=== PATIENT | male | born 1955 | race Caucasian/White ===

== ENCOUNTER 2018-08-18 11:27 | Outpatient (CLI) | payer BC, SELFPAY ==
[2018-08-18 13:24] LABS: ALT 41 U/L (12-78); AST 23 U/L (15-37); Alkaline Phosphatase 103 U/L (46-116); Anion Gap 9.4 mmol/L (3-11); BUN 15 mg/dL (7-18); Bilirubin, Total 0.9 mg/dL (0.2-1.0); CO2 28.6 mmol/L (21.0-32.0); CREATININE 0.99 mg/dL (0.70-1.30); Calcium 9.4 mg/dL (8.5-10.1); Chloride 102 mmol/L (98-107); Glucose 95 mg/dL (70-100); Potassium 4.4 mmol/L (3.5-5.1); Sodium 140 mmol/L (136-145); Total Protein 7.2 g/dL (6.4-8.2)
[2018-08-18 14:15] LABS: Hemoglobin A1C 5.4 % (4.5-6.2)
[2018-08-19 10:58] LABS: PSA, Screening 1.9 ng/ml (0-4.5)
== END 2018-08-18 11:47 ==
PROVIDERS: PCP Family Medicine; Visit Provider Family Medicine
DX: Z00.00 Encounter for general adult medical examination without abnormal findings (principal); R73.9 Hyperglycemia, unspecified; N13.8 Other obstructive and reflux uropathy; N40.1 Benign prostatic hyperplasia with lower urinary tract symptoms; Z12.5 Encounter for screening for malignant neoplasm of prostate
CPT/HCPCS: 36415; 80053; 84153; 83036

== ENCOUNTER 2019-08-23 07:00 | Outpatient (CLI) | payer MEDICARE, BC, SELFPAY ==
[2019-08-23 12:39] LABS: HCT 42.4 % (40.0-50.0); HGB 15.3 g/dL (13.5-17.5); Mean Corp. HGB Concentration 36.1 g/dL (32.0-36.0); Mean Corpuscular Hemoglobin 32.1 pg (27.0-33.0); Mean Corpuscular Volume 88.9 fL (80-95); Mean Platelet Volume 10.9 fL (8.0-11.0); Platelet Count 296 x1000/uL (130-400); RBC 4.77 m/cumm (4.50-6.00); RBC Distribution Width 11.6 % (11.8-14.1); White Blood Cell Count 6.58 k/cumm (4.4-10.8)
[2019-08-23 12:50] LABS: ALT 36 U/L (16-63); AST 19 U/L (15-37); Albumin 3.8 g/dL (3.4-5.0); Alkaline Phosphatase 99 U/L (46-116); Anion Gap 8.8 mmol/L (3-11); BUN 14 mg/dL (7-18); Bilirubin, Total 1.1 mg/dL (0.2-1.0); CO2 30.2 mmol/L (21.0-32.0); Calcium 9.1 mg/dL (8.5-10.1); Chloride 101 mmol/L (98-107); Glucose 105 mg/dL (74-106); Potassium 4.3 mmol/L (3.5-5.1); Sodium 140 mmol/L (136-145)
== END 2019-08-23 07:20 ==
PROVIDERS: PCP Family Medicine; Visit Provider Family Medicine
DX: K21.9 Gastro-esophageal reflux disease without esophagitis (principal); N40.0 Benign prostatic hyperplasia without lower urinary tract symptoms; Z12.5 Encounter for screening for malignant neoplasm of prostate
CPT/HCPCS: 36415; 80053; 84153; 85027

== ENCOUNTER 2020-08-28 10:38 | Outpatient (CLI) | payer MEDICARE, BC, SELFPAY ==
[2020-08-28 13:12] LABS: Calculated LDL 104 mg/dL (<100); Cholesterol 189 mg/dL (<200); HDL Cholesterol 65 mg/dL (40-60); Triglyceride 101 mg/dL (<150)
== END 2020-08-28 10:58 ==
PROVIDERS: PCP Family Medicine; Visit Provider Nurse Practitioner Family
DX: N52.9 Male erectile dysfunction, unspecified (principal)
CPT/HCPCS: 36415; 80061

== ENCOUNTER 2020-09-21 01:48 | Outpatient (CLI) | payer MEDICARE, BC, SELFPAY ==
--- NOTE | 2020-09-21 08:52 | DI.CT_ITS ---
EXAM: CT HEAD WO CLINICAL HISTORY: Fall with head injury,S09.90XA. TECHNIQUE: Imaging Protocol: Axial computed tomography images with coronal and sagittal reformatted images were created and reviewed COMPARISON: MR MRA HEAD WO from 08/12/2017 FINDINGS: There is moderate frontal atrophy. There is no intracranial hemorrhage, mass or infarct. The ventri cles are normal in size. There is no evidence of skull fracture. There is mucosal thickening in the frontal and ethmoid sinuses. The mastoid air cells appear clear. The orbits are unremarkable. IMPRESSION: Frontal atrophy. No acute intracranial process. RADIATION DOSE DELIVERED: 774.53mGy.cm Total DLP DATA REPOSITORY: All CT scans at this facility are submitted to the National Radiology Data Registry (NRDR) Dose Index Registry (DIR) with the [employer] ([employer]). RADIATION OPTIMIZATION: All CT scans at this facility use at least one of these dose optimization te chniques: automated exposure control; mA and/or kV adjustment per patient size (includes targeted exa ms where dose is matched to clinical indication); or iterative reconstruction.
== END 2020-09-21 01:49 ==
LOC: DI 01:48
PROVIDERS: PCP Family Medicine; Visit Provider Nurse Practitioner Family
DX: G31.89 Other specified degenerative diseases of nervous system (principal); S09.8XXA Other specified injuries of head, initial encounter
CPT/HCPCS: 70450

== ENCOUNTER 2021-08-16 04:02 | Outpatient (CLI) | payer MEDICARE, BC, SELFPAY ==
[2021-08-16 22:25] LABS: PSA, Screening 2.4 ng/mL (0.0-4.5)
[2021-08-17 08:42] LABS: Anion Gap 9.6 mmol/L (3-11); BUN 12 mg/dL (7-18); CO2 27.4 mmol/L (21.0-32.0); CREATININE 1.2 mg/dL (0.70-1.30); Calcium 8.9 mg/dL (8.5-10.1); Calculated LDL 98 mg/dL (<100); Chloride 101 mmol/L (98-107); Cholesterol 180 mg/dL (<200); Glucose 82 mg/dL (74-106); HDL Cholesterol 62 mg/dL (40-60); Potassium 4.5 mmol/L (3.5-5.1); Sodium 138 mmol/L (136-145); Triglyceride 103 mg/dL (<150)
== END 2021-08-16 04:03 | disposition home or self-care (01) ==
PROVIDERS: PCP Nurse Practitioner Family; Visit Provider Nurse Practitioner Family
DX: N40.0 Benign prostatic hyperplasia without lower urinary tract symptoms (principal); F10.10 Alcohol abuse, uncomplicated; Z13.220 Encounter for screening for lipoid disorders; Z12.5 Encounter for screening for malignant neoplasm of prostate
CPT/HCPCS: 36415; 80048; 80061; 84153

== ENCOUNTER 2023-12-25 05:07 | Outpatient (CLI) | payer MEDICARE, BC, SELFPAY ==
[2023-12-25 09:54] LABS: Hemoglobin A1C 5.2 % (<5.7)
[2023-12-25 10:04] LABS: ALT 25 U/L (16-63); AST 17 U/L (15-37); Albumin 3.8 g/dL (3.4-5.0); Alkaline Phosphatase 89 U/L (46-116); Anion Gap 8.6 mmol/L (3-11); BUN 13 mg/dL (7-18); CO2 28.4 mmol/L (21.0-32.0); CREATININE 1.1 mg/dL (0.70-1.30); Calculated LDL 85 mg/dL (<100); Chloride 104 mmol/L (98-107); Cholesterol 177 mg/dL (<200); Estimated GFR 72.22 (mL/min/1.73m2); Glucose 98 mg/dL (74-106); HDL Cholesterol 71 mg/dL (40-60); Potassium 4.4 mmol/L (3.5-5.1); Sodium 141 mmol/L (136-145); Total Protein 7.1 g/dL (6.4-8.2); Triglyceride 109 mg/dL (<150)
[2023-12-25 21:01] LABS: PSA, Screening 2.6 ng/mL (<=6.5)
== END 2023-12-25 05:08 | disposition home or self-care (01) ==
PROVIDERS: PCP Nurse Practitioner Family; Visit Provider Nurse Practitioner Family
DX: Z12.5 Encounter for screening for malignant neoplasm of prostate (principal); Z00.00 Encounter for general adult medical examination without abnormal findings; Z13.6 Encounter for screening for cardiovascular disorders; F10.10 Alcohol abuse, uncomplicated
CPT/HCPCS: 36415; 80053; 80061; 84153; 83036

== ENCOUNTER 2025-01-26 03:15 | Outpatient (CLI) | payer MEDICARE, BC, SELFPAY ==
[2025-01-26 10:17] LABS: ALT 29 U/L (16-63); AST 22 U/L (15-37); Albumin 3.9 g/dL (3.4-5.0); Alkaline Phosphatase 102 U/L (46-116); Anion Gap 6.7 mmol/L (3-11); BUN 14 mg/dL (7-18); Bilirubin, Total 1.1 mg/dL (0.2-1.0); CO2 30.3 mmol/L (21.0-32.0); CREATININE 1.1 mg/dL (0.70-1.30); Calcium 9.1 mg/dL (8.5-10.1); Calculated LDL 80 mg/dL (<100); Chloride 102 mmol/L (98-107); Cholesterol 178 mg/dL (<200); Estimated GFR 71.77 (mL/min/1.73m2); Glucose 103 mg/dL (74-106); HDL Cholesterol 73 mg/dL (>or=40); Potassium 4.2 mmol/L (3.5-5.1); Sodium 139 mmol/L (136-145); Total Protein 7.5 g/dL (6.4-8.2); Triglyceride 125 mg/dL (<150)
[2025-01-26 19:11] LABS: PSA, Screening 3.8 ng/mL (<=6.5)
== END 2025-01-26 03:16 | disposition home or self-care (01) ==
LOC: LBO 03:15
PROVIDERS: PCP Nurse Practitioner Family; Visit Provider Nurse Practitioner Family
DX: Z13.6 Encounter for screening for cardiovascular disorders (principal); F10.10 Alcohol abuse, uncomplicated; Z12.5 Encounter for screening for malignant neoplasm of prostate
CPT/HCPCS: 36415; 80053; 80061; 84153

== ENCOUNTER 2025-03-25 14:04 | Outpatient (REF) | payer MEDICARE, BC, SELFPAY ==
--- NOTE | 2025-03-25 13:30 | SKI_PTH ---
PATIENT: Pelon Subramanian LOC: [facility] U#:[id number] AGE/SX: 69/M ROOM: RE03/25/[address]: Bart Felder DO : 1955 BED: DIS: 03/25/2025 SPEC #: [id number] RECD: 03/25/25 16:43 STATUS: JESSICA REQ #: [id number] MANDY: 03/25/25 13:[address]: Bart Felder DEPT: Surgical Specimen RECD BY: Kristina Mcintosh ENTERED: 03/25/25 16:45 SP TYPE: EDD OLMOS DR: Delvis Choudhary, DRESS DRAPER Tissues: 1 - SKIN BIOPSY(SHAVE/PUNCH) 2 - SKIN BIOPSY(SHAVE/PUNCH) Procedures: SKIN LEVEL 4 Comments: [id number]
== END 2025-03-25 14:05 | disposition home or self-care (01) ==
LOC: LBN 14:04
PROVIDERS: PCP Nurse Practitioner Family; Visit Provider Otolaryngology Otolaryngology/Facial Plastic Surgery
DX: Q85.00 Neurofibromatosis, unspecified (principal); D49.2 Neoplasm of unspecified behavior of bone, soft tissue, and skin
CPT/HCPCS: 88305